=== PATIENT | male | born 1985 | race Caucasian/White ===

== ENCOUNTER 2018-03-15 08:45 | Emergency (ER) | payer OTHER ==
[~2018-03-15] VITALS: Ht 177.8 cm; Wt 79.5 kg
[2018-03-15 08:46] VITALS: BP 127/70
[2018-03-15] MEDS ORDERED: HYDR-3713 (08:53)
[2018-03-15] MEDS ORDERED: CYCL5TAB (08:53)
[2018-03-15] MEDS ORDERED: NAPR-885 (08:53)
[2018-03-15] MEDS ORDERED: NEUR300C PO (09:14)
[2018-03-15] MEDS ORDERED: PRED20TA PO (09:14)
== END 2018-03-15 09:29 | disposition home or self-care (01) ==
LOC: M ED 08:45
DX: S39.012A Strain of muscle, fascia and tendon of lower back, initial encounter (principal); M54.16 Radiculopathy, lumbar region; X50.0XXA Overexertion from strenuous movement or load, initial encounter; Y92.39 Other specified sports and athletic area as the place of occurrence of the external cause; Z87.891 Personal history of nicotine dependence

== ENCOUNTER 2018-05-04 17:26 | Emergency (ER) | payer OTHER ==
[~2018-05-04] VITALS: Ht 177.8 cm; Wt 82.9 kg
[2018-05-04 17:26] VITALS: BP 137/75
[~2018-05-04 17:26] MED LIST: CYCL5TAB; HYDR-3713; NAPR-885; NEUR300C PO; PRED20TA PO
[2018-05-04 18:11] LABS: INFLUENZA A AMPLIFICATION NEGATIVE (NEGATIVE); INFLUENZA B AMPLIFICATION NEGATIVE (NEGATIVE)
[2018-05-04] MEDS ORDERED: ACETAMINOPHEN 325 MG TAB PO ONE (20:30)
[2018-05-04] MEDS ORDERED: IBUPROFEN 600 MG TAB PO ONE (20:45)
[2018-05-04] MEDS ORDERED: IBUP-1022 PO (20:50)
== END 2018-05-04 21:05 | disposition home or self-care (01) ==
LOC: M ED 17:26
DX: J11.1 Influenza due to unidentified influenza virus with other respiratory manifestations (principal); Z72.0 Tobacco use